=== PATIENT | male | born 1985 | race Caucasian/White ===

== ENCOUNTER 2016-06-04 04:44 | Emergency (ER) | payer OTHER ==
[~2016-06-04] VITALS: Ht 175.3 cm; Wt 83.9 kg
[~2016-06-04 04:44] MED LIST: ACETAMINOPHEN-1 EAC1 PO; AUROGUARD OTIC15 ML OT; CLEOCIN HCL300 MG PO; EAR DROPS15 ML OT; FLEXERIL PO; IBUPROFEN 600600 M1 PO; IBUPROFEN 800800 M1 PO; IBUPROFEN 800800 MG PO; KEFLEX500 MG PO; NAPROSYN500 MG PO; NOHOMEMEDICATIONS; NORCO 5-325 TA1 EACH PO; PENICILLIN V P500 MG PO; PENICILLIN VK500 M1 PO; PENICILLIN VK500 MG PO; PERCOCET 5-3251 EACH PO; SILVADENE20 GM TP; TRAMADOL 50 MG50 MG PO; ULTRAM 50MG TAB50 MG PO
[2016-06-04 04:48] VITALS: BP 162/100
[2016-06-04] MEDS ORDERED: NORCO 5-325 TA1 EACH PO (04:57)
== END 2016-06-04 05:33 | disposition home or self-care (01) ==
LOC: ER 04:44
DX: S83.92XA Sprain of unspecified site of left knee, initial encounter (principal); M25.562 Pain in left knee; W01.0XXA Fall on same level from slipping, tripping and stumbling without subsequent striking against object, initial encounter; Y93.89 Activity, other specified; Y92.59 Other trade areas as the place of occurrence of the external cause; Y99.0 Civilian activity done for income or pay; F17.210 Nicotine dependence, cigarettes, uncomplicated

== ENCOUNTER 2016-10-23 16:05 | Emergency (ER) | payer OTHER ==
[~2016-10-23] VITALS: Ht 175.3 cm; Wt 85.7 kg
[2016-10-23 16:06] VITALS: BP 142/104
[2016-10-23] MEDS ORDERED: NABUMETONE 750750 M1 PO (17:11)
== END 2016-10-23 17:22 | disposition home or self-care (01) ==
LOC: ER 16:05
DX: S90.121A Contusion of right lesser toe(s) without damage to nail, initial encounter (principal); F17.210 Nicotine dependence, cigarettes, uncomplicated; W18.40XA Slipping, tripping and stumbling without falling, unspecified, initial encounter; Y93.89 Activity, other specified; Y92.098 Other place in other non-institutional residence as the place of occurrence of the external cause; Y99.8 Other external cause status

== ENCOUNTER 2017-10-11 16:06 | Emergency (ER) | payer OTHER ==
[~2017-10-11] VITALS: Ht 175.3 cm; Wt 83.9 kg
[~2017-10-11 16:06] MED LIST changes: +NABUMETONE 750750 M1 PO
[2017-10-11 16:15] VITALS: BP 151/98
[2017-10-11] MEDS ORDERED: HYDROCODONE-AP1 EAC6 PO (16:54)
== END 2017-10-11 17:07 | disposition home or self-care (01) ==
LOC: ER 16:06
DX: S97.81XA Crushing injury of right foot, initial encounter (principal); F17.210 Nicotine dependence, cigarettes, uncomplicated; W20.8XXA Other cause of strike by thrown, projected or falling object, initial encounter; Y93.89 Activity, other specified; Y92.89 Other specified places as the place of occurrence of the external cause; Y99.8 Other external cause status

== ENCOUNTER 2018-04-24 13:26 | Emergency (ER) | payer OTHER ==
[~2018-04-24] VITALS: Ht 175.3 cm; Wt 83.9 kg
[~2018-04-24 13:26] MED LIST changes: +HYDROCODONE-AP1 EAC6 PO
[2018-04-24] MEDS ORDERED: MOBIC7.5 MG PO (15:15)
[2018-04-24 15:28] VITALS: BP 145/98
== END 2018-04-24 15:29 | disposition home or self-care (01) ==
LOC: ER 13:26
DX: S46.811A Strain of other muscles, fascia and tendons at shoulder and upper arm level, right arm, initial encounter (principal); F17.210 Nicotine dependence, cigarettes, uncomplicated; W00.0XXA Fall on same level due to ice and snow, initial encounter; Y93.89 Activity, other specified; Y92.89 Other specified places as the place of occurrence of the external cause; Y99.8 Other external cause status

== ENCOUNTER 2018-06-24 13:27 | Emergency (ER) | payer OTHER ==
[~2018-06-24] VITALS: Ht 175.3 cm; Wt 83.9 kg
[~2018-06-24 13:27] MED LIST changes: +MOBIC7.5 MG PO
[2018-06-24] MEDS ORDERED: TRAMADOL 50 MG50 MG PO (13:43)
== END 2018-06-24 14:05 | disposition home or self-care (01) ==
LOC: ER 13:27
DX: T22.212A Burn of second degree of left forearm, initial encounter (principal); T31.0 Burns involving less than 10% of body surface; F17.210 Nicotine dependence, cigarettes, uncomplicated; X15.0XXA Contact with hot stove (kitchen), initial encounter

== ENCOUNTER 2021-02-19 19:28 | Emergency (ER) | payer OTHER ==
[~2021-02-19] VITALS: Ht 175.3 cm; Wt 83.9 kg
[2021-02-19 20:57] VITALS: BP 152/99
== END 2021-02-19 20:59 | disposition home or self-care (01) ==
LOC: ER 19:28
DX: S81.011A Laceration without foreign body, right knee, initial encounter (principal); M25.561 Pain in right knee; F11.20 Opioid dependence, uncomplicated; F17.210 Nicotine dependence, cigarettes, uncomplicated; V82.6XXA Occupant of streetcar injured by fall from streetcar, initial encounter; Y93.89 Activity, other specified; Y92.89 Other specified places as the place of occurrence of the external cause; Y99.8 Other external cause status